=== PATIENT | female | born 1970 | race African-American/Black ===

== ENCOUNTER 2021-05-21 21:14 | Emergency (ER) | payer SELFPAY ==
[~2021-05-21] VITALS: Ht 167.6 cm; Wt 104.0 kg
[2021-05-22 00:32] VITALS: BP 129/88
== END 2021-05-22 00:33 | disposition home or self-care (01) ==
LOC: ER 21:27
DX: R06.09 Other forms of dyspnea (principal); B94.8 Sequelae of other specified infectious and parasitic diseases
CPT/HCPCS: 93005; 99283